=== PATIENT | male | born 1990 | race Two or more races ===

== ENCOUNTER 2023-12-13 12:37 | Emergency (ER) | payer OTHER, SELFPAY ==
--- NOTE | 2023-12-13 13:01 | ED.GENADULT ---
HPI - General Adult General Stated complaint: CUT LIP,FROM [facility] PER EMS Time Seen by Provider: 12/13/23 12:46 Source: patient and EMS Mode of arrival: EMS Limitations: other (poor historian ) History of Present Illness ED Provider: Anita VICENTE HPI narrative: 33 year old male presents from [facility] for lip lac to left upper lip unclear when it happened. Reports he wants to leave as soon as he got here. Reports security upset him. Tried to deescalate situation but patient refusing full care and treatment, requesting to go back to [facility] at this time w/o full treatment. When I asked him what happened he refused to answer, its fine now.. I just want to go back . No hx of blood thinner use. Unclear how this happened or when. Not providing a history. Related Data Allergies Allergy/AdvReac Type Severity Reaction Status Date / Time Unable to Assess Allergy Verified 12/13/23 12:50 Review of Systems Review of Systems: Yes all other systems are reviewed and are negative PMFSH Past Medical History Attestation statement: The following information was validated with the patient. Source: old records reviewed and nursing notes reviewed Social History Social History Advance Directives: No Physical Exam ED Vital Signs: refused Appearance: Alert.? Oriented X3.? No acute distress.? Head: Normocephalic, Lip: right upper lip with laceration that appears to be healing through and through ( healing both from inside and out) Eyes: Pupils equal, round and reactive to light.? CVS Pulses normal.? Respiratory: No respiratory distress.? Abdomen: Soft and nontender.? Skin: Skin warm and dry.? Normal skin color.? Normal skin turgor.? Neuro: Oriented X 3.? No motor deficit.? Course Reevaluation(s) Reevaluation #1: Offered to futher eval lip again, he is refusing. Plan- dc back to [facility] as patient is refusing care further imaging as needed Time: 13:07 Medical Decision Making Medical Decision Making MDM Narrative: 33 yo m presents w/ lip ( upper left) lac that is now healing X few days PE- scabbed over left upper lip lac to lip through and through appears to be self healing. Refusing full exam therefor difficult to tell if patients teeth are intact. Likely through and through lip lac with self healing . Low suspicion for facial fx, ICH. Plan- Differential Diagnosis Differential Diagnoses: The differential diagnosis associated with the presentation includes Likely through and through lip lac with self healing . Low suspicion for facial fx, ICH. Admission/Observation Consideration of admission/observation: Escalation of care including admission/observation considered [facility] Independent Historian Clinical information obtained from an independent historian. History obtained from or confirmed by: EMS Critical Care Time Critical Care Time Critical Care Time: No Discharge Plan Discharge Clinical Impression: Laceration of lip, Procedure and treatment not carried out for other reasons Patient Disposition: er Other Transfer Details: Back to [facility] Instructions: Laceration (ED) Additional Instructions: Take your medications as prescribed. If you were prescribed antibiotics today, it is important that you take your medication to their entirety, do not skip any doses, do not finish them early. Follow-up with your primary care provider this week. Return to the emergency department with new or worsening symptoms. Such as fevers, chills, chest pain, shortness of breath, nausea, vomiting, dizziness, headache, vision changes, lethargy In case of emergency call 911 Stand Alone Forms: Work/School Release Print Language: Upper Sorbian
[2023-12-13 13:07] VITALS: BP 160/110; PULSE 90; O2SAT 96; BMI 23.6
--- NOTE | 2023-12-13 13:23 | PC.NURSE ---
Pt comes to ED today via EMS from [facility]. Upon arrival Pt is aggressive, using foul language, threatening security, and will not permit any medical intervention at this time. This RN was unable to obtain VS as Pt is combative and threatening staff. Awaiting disposition.
[2023-12-13 14:05] VITALS: BP 00/00; PULSE 0; RESP 0; TEMP -17.7; TEMP 0
== END 2023-12-13 14:07 ==
PROVIDERS: Emergency Provider Emergency Medicine
DX: S01.511A Laceration without foreign body of lip, initial encounter (principal); X58.XXXA Exposure to other specified factors, initial encounter; Y93.9 Activity, unspecified; Y92.9 Unspecified place or not applicable; Y99.9 Unspecified external cause status
CPT/HCPCS: 99282; 99285